=== PATIENT | female | born 1955 | race Caucasian/White ===

== ENCOUNTER → 2024-07-15 11:44 | Outpatient (CLI) | payer MEDICARE, SELFPAY ==
--- NOTE | 2024-07-15 11:46 | DI.RAD.S_ITS ---
PROCEDURE: FL HIP INJECTION MR/CT RT INDICATIONS: RIGHT HIP PAIN TECHNIQUE: The indications, alternatives, benefits, risks, and complications of the procedure were explained to the patient. Written informed consent was obtained and placed in the chart. The hip was examined fluoroscopically with the legs fixed in slight internal rotation, and a site for needle placement chosen for entry into the hip joint from an anterior approach. Care was taken to locate the common femoral artery and vein beforehand. The skin was prepped and draped in a sterile fashion, and 1% Lidocaine infiltrated from skin down to joint capsule. A spinal needle was inserted into the joint, and a small amount of iodinated contrast media injected to confirm intra-articular placement of the needle tip. This was followed by approximately 10 mL dilute solution of a gadolinium containing MR contrast agent. The needle was removed and a dressing was applied. The patient was given postprocedural instructions and sent to the MR suite for imaging. COMPARISON: None. FINDINGS: A single fluoroscopic spot image demonstrates intra-articular location of injected iodinated contrast. IMPRESSION: Successful fluoroscopically guided administration of dilute Gadolinium solution into the hip joint for MR arthrogram. Dictated by: Dax Torres M.D. on 07/15/2024 at 15:27 Approved by: Dax Torres M.D. on 07/15/2024 at 15:27
--- NOTE | 2024-07-15 11:46 | DI.MRI.S_ITS ---
PROCEDURE: MR HIP RT W CON INDICATIONS: RIGHT HIP PAIN TECHNIQUE: After the administration of 10 mL of dilute intra-articular Gadolinium contrast, coronal STIR of the bony pelvis; coronal and oblique axial T1 spin echo with fat saturation, axial T2 fast spin echo with fat saturation, sagittal T1 spin echo with and without fat saturation of the involved hip. COMPARISON: None. FINDINGS: Image quality: Excellent. Bones and joints: Scoliosis of the lower lumbar spine, incompletely evaluated. No marrow edema of the visualized lower lumbar spine. The visualized sacrum is intact. The right and the left sacroiliac joints are unremarkable. Moderate degenerative changes of the right hip with marrow edema in the femoral head, and the acetabulum. Moderate joint space narrowing of the right hip. No acute fracture or dislocation of either hip. No avascular necrosis of either femoral head. Tendons and ligaments: The right iliopsoas, and adductor tendon are unremarkable. The right hamstring tendon is unremarkable. The right gluteal minimus, and the right gluteal medius tendon are unremarkable. Small marrow edema at the right greater tuberosity, reactive. Labrum and cartilage: Superior labral tear, extending anteriorly to the anterior superior labrum.. No paralabral cyst. Soft tissues: Unremarkable IMPRESSION: 1. Moderate degenerative changes of right hip with mild subchondral marrow edema. 2. Labral tear. No paralabral cyst. 3. Mild reactive marrow edema at the right greater tuberosity. Dictated by: Shey Madrid M.D. on 07/16/2024 at 9:37 Approved by: Shey Madrid M.D. on 07/16/2024 at 9:44
[2024-07-15] MEDS: LIDOCAINE 1% 20 ML INJ (14:08)
[2024-07-15] MEDS: SODIUM CHLORIDE 0.9 % 20 ML VIAL IV (14:09)
== END ==
PROVIDERS: Referring Provider Student in an Organized Health Care Education/Training Program; Visit Provider Student in an Organized Health Care Education/Training Program
DX: S73.191A Other sprain of right hip, initial encounter (principal); M25.551 Pain in right hip
CPT/HCPCS: 27093; 73525; 73722; A9579; Q9967

== ENCOUNTER → 2024-11-29 10:14 | Outpatient (CLI) | payer MEDICARE, SELFPAY ==
--- NOTE | 2024-11-29 17:15 | DI.NM.S_ITS ---
DATE OF SERVICE: 11/29/2024 NUCLEAR CARDIOLOGY MYOCARDIAL PERFUSION STUDY PROCEDURE: Exercise treadmill stress and rest myocardial perfusion imaging with gating to assess ejection fraction and regional wall motion. ORDERING PROVIDER: KRYSTIAN Mitchell INDICATIONS: The patient is a 69-year-old female with atypical epigastric pain with anticipation for possible hip replacement surgery. CARDIAC STRESS: The patient was able to exercise for a total of 4 minutes 42 seconds on a standard Broderick protocol suggesting mild- moderately reduced exercise capacity with an AIDEE of +18%. She had a normal heart rate response to exercise although developed a brief SVT in early recovery with heart rates up to 176 bpm, which resolved promptly with Valsalva maneuver. She had a mild hypertensive blood pressure response to exercise with a resting blood pressure of 160/90 increasing to a maximum of 210/110. She had moderate exertional dyspnea but no chest discomfort or other anginal symptoms. Her resting ECG shows sinus rhythm with probable LVH and associated mild inferolateral ST segment abnormalities. With stress, the ST segment abnormalities become somewhat accentuated but remain nonspecific because of the baseline abnormality. With her SVT in early recovery, she has QRS widening in a left bundle-branch block configuration with associated ST-segment abnormalities. With resolution of her SVT and LBBB, her ST segments normalized. At 3 minutes 30 seconds of exercise at a heart rate of 146 bpm, 25.9 mCi of technetium-99m Myoview was injected and she was imaged 10 minutes later using a gated SPECT acquisition protocol. Earlier in the day while at rest, she had been injected with 12.8 mCi of technetium-99m Myoview and was imaged 15 minutes later, again using a gated SPECT acquisition protocol. FINDINGS: 1. Raw data: There is fairly good myocardial tracer uptake with mild breast shadows noted. The lung/heart ratio is normal at 0.27 with a normal TID ratio of 1.02. 2. Quantitated gated SPECT: Post-stress ejection fraction is 73% without any focal wall motion abnormality. Resting ejection fraction is 71% with a normal resting end-diastolic volume of 103 mL. 3. Myocardial perfusion imaging: Post-stress supine images show a normal myocardial perfusion pattern, supported by normal, homogeneous perfusion imaging in the prone position. The resting images show a similar perfusion pattern without any areas of improvement. IMPRESSION: 1. Normal exercise treadmill myocardial perfusion study for ischemia. 2. No myocardial perfusion defects to suggest myocardial ischemia or previous myocardial infarction. 3. Normal left ventricular size and systolic function without focal wall motion abnormality. 4. Mild to moderately reduced exercise capacity without angina. Baseline ECG abnormalities become accentuated with stress and likely reflect LVH with repolarization abnormality. She developed SVT at 176 bpm with left bundle-branch block configuration in early recovery that spontaneously resolved with Valsalva maneuver and was asymptomatic and no other appreciable arrhythmias. She had a mild hypertensive blood pressure response to exercise. Kriss Molina - RS/krista/AL doc#: [id number]/job#: [id number] dd: 11/29/2024 16:41:00 dt: 11/29/2024 16:59:00 DICTATING MD/COPIES TO: Jaden Oliveira MD; KRYSTIAN Mitchell COPIES MNE: ERICA; ; Ktahya Villalpando PAC
== END ==
LOC: NUCM 10:15
PROVIDERS: PCP Family Medicine; Referring Provider Physician Assistant; Visit Provider Physician Assistant
DX: R07.9 Chest pain, unspecified (principal)
CPT/HCPCS: 78452; 93017; A9502

== ENCOUNTER → 2025-02-20 15:08 | Outpatient (CLI) | payer MEDICARE, MEDICAID, SELFPAY ==
[2025-02-20 15:46] LABS: Add Manual Diff / Slide Review NO; Basophils Absolute Auto 0 /uL (0-100); Basophils Percent Auto 0.6 % (0-2); Eosinophils Absolute Auto 200 /uL (0-450); Eosinophils Percent Auto 2.1 % (2-4); Hematocrit 33.9 % (36-46); Hemoglobin 11.6 g/dL (12.0-16.0); Lymphocytes Absolute Auto 1700 /uL (1100-4500); Lymphocytes Percent Auto 21.2 % (25-40); Mean Corpuscular HGB Conc 34.1 % (30-36); Mean Corpuscular Hemoglobin 31.5 PG (26-34); Mean Corpuscular Volume 92.5 fL (80-100); Monocytes Absolute Auto 500 /uL (0-900); Monocytes Percent Auto 6.1 % (3-14); Neutrophils Absolute Auto 5500 /uL (1500-7000); Platelet Count 297 X10^3/uL (150-400); Red Blood Cell Count 3.67 X10^6/uL (4.0-5.2); Red Cell Distribution Width 13.1 % (11.6-14.8); White Blood Cell Count 7.9 X10^3/uL (4.5-11.0)
== END ==
PROVIDERS: PCP Family Medicine; Referring Provider Family Medicine; Visit Provider Family Medicine
DX: D50.9 Iron deficiency anemia, unspecified (principal); Z13.0 Encounter for screening for diseases of the blood and blood-forming organs and certain disorders involving the immune mechanism
CPT/HCPCS: 36415; 85025

== ENCOUNTER → 2025-02-28 13:49 | Outpatient (CLI) | payer MEDICARE, MEDICAID, SELFPAY ==
--- NOTE | 2025-02-28 13:50 | DI.RAD.S_ITS ---
PROCEDURE: XR DEXA AXIAL SKELETON INDICATIONS: postmenopausal COMPARISON: None. FINDINGS: Lumbar Spine: Bone mineral density 0.981 g/cm2, T score -0.6. Left Femoral Neck: Bone mineral density 0.698 g/cm2, T score -1.4. Left Hip: Bone mineral density 0.847 g/cm2, T score -0.8. Fracture Risk Calculation (when applicable): 10-year fracture risk of a major osteoporotic fracture 15 percent and of a hip fracture 1.8 percent. (T score greater or equal to -1.0 to: NORMAL) (T score from -1.1 to -2.4: OSTEOPENIA) (T score less than or equal to -2.5: OSTEOPOROSIS) IMPRESSION: Osteopenia--- recommend repeat DEXA in 2-3 years for reassessment. Follow-up guidelines as follows: Osteoporosis: Consider a repeat DEXA and Vertebral Fracture Assessment (VFA) exam in 2 years or sooner if medically necessary, to reassess this patient's status. Osteopenia: Consider a repeat DEXA in 2-3 years to reassess this patient's status, or if there is a new clinical indication. Normal: Consider a repeat DEXA in 5 years or sooner, or if there is a new clinical indication. All treatment decisions require clinical judgment and consideration of individual patient factors, including patient preferences, comorbidities, previous drug use, risk factors not captured in the FRAX model (e.g., frailty, falls, vitamin D deficiency, increased bone turnover, interval significant decline in bone density ) and possible under- or over-estimation of fracture risk by FRAX. In addition, the NOF Guide recommends that FDA-approved medical therapies be considered in postmenopausal women and men age >= 50 years with a: * Hip or vertebral (clinical or morphometric) fracture * T-score of <=-2.5 at the spine or hip * Ten-year fracture probability by FRAX of >= 3% for hip fracture or >=20% for major osteoporotic fracture. Dictated by: Yousif Joseph M.D. on 02/28/2025 at 19:07 Approved by: Yousif Joseph M.D. on 02/28/2025 at 19:08
== END ==
LOC: RAD 13:50
PROVIDERS: PCP Family Medicine; Referring Provider Family Medicine; Visit Provider Family Medicine
DX: M85.852 Other specified disorders of bone density and structure, left thigh (principal); Z78.0 Asymptomatic menopausal state
CPT/HCPCS: 77080

== ENCOUNTER 2025-04-29 14:00 | Emergency (ER) | payer MEDICARE, MEDICAID, SELFPAY ==
[2025-04-29] VITALS (14 sets, daily range): BP systolic 161–224; BP diastolic 74–99; PULSE 66–76; RESP 16–30; TEMP 36.7–37.2; O2SAT 93–96; BMI 30.2
--- NOTE | 2025-04-29 16:51 | ED.ABDPAIN ---
HPI - Abdominal Pain <Pastor Harrison MD - Last Filed: 04/29/25 16:52> General Chief Complaint: Urogenital-Female Stated Complaint: Lower left back pain . Time Seen by Provider: 04/29/25 16:51 Source: patient Mode of arrival: Ambulatory History of Present Illness HPI narrative: This is a 61-year-old female who is referred to the emergency department by her primary care provider Dr. Jaden Wilkerson. Patient reportedly had left flank pain for 5 days. There is concern for ureteral stone. Dr. Wilkerson reported the patient appeared uncomfortable. Related Data Allergies Allergy/AdvReac Type Severity Reaction Status Date / Time clarithromycin (From Biaxin) Allergy Rash Verified 04/29/25 14:28 morphine AdvReac Mild Nausea Verified 04/29/25 14:37 ibuprofen AdvReac Vomiting Verified 04/29/25 14:37 naproxen (From Aleve) AdvReac Vomiting Verified 04/29/25 14:37 oxycodone AdvReac Agitated Verified 04/29/25 14:37 Patient History <Pastor Harrison MD - Last Filed: 04/29/25 16:52> Social History Smoking Status: Never smoker Smoking Status: Never smoker Exam <Pastor Harrison MD - Last Filed: 04/29/25 16:52> Initial Vital Signs Initial Vital Signs: Vital Signs Temperature 98.9 F 04/29/25 14:24 Pulse Rate 72 04/29/25 14:24 Respiratory Rate 18 04/29/25 14:24 Blood Pressure 199/99 H 04/29/25 14:24 Pulse Oximetry 96 04/29/25 14:24 Oxygen Delivery Method Room Air 04/29/25 14:24 <Elias Mckeon MD - Last Filed: 04/29/25 18:52> Narrative Exam Narrative: GENERAL: Well-developed patient, in mild distress. HEAD: Atraumatic. Normocephalic. EYES: Pupils equal round and reactive. Extraocular motions intact. No scleral icterus. No injection or drainage. ENT: Nose without bleeding, purulent drainage. Throat without erythema, tonsillar hypertrophy or exudate. Airway patent. NECK: Trachea midline. Non tender CARDIOVASCULAR: Regular rate and rhythm without murmurs, gallops, or rubs. RESPIRATORY: Clear to auscultation. Breath sounds equal bilaterally. No wheezes, rales, or rhonchi. GASTROINTESTINAL: Abdomen soft, non-tender, nondistended. EXTREMITIES: No edema or joint tenderness. BACK: Nontender without deformity or crepitance. No flank tenderness. NEURO: AOx3. Motor functions grossly nonfocal. SKIN: No rash or erythema of visible areas Initial Vital Signs Initial Vital Signs: Vital Signs Temperature 98.9 F 04/29/25 14:24 Pulse Rate 72 04/29/25 14:24 Respiratory Rate 18 04/29/25 14:24 Blood Pressure 199/99 H 04/29/25 14:24 Pulse Oximetry 96 04/29/25 14:24 Oxygen Delivery Method Room Air 04/29/25 14:24 Course <Pastor Harrison MD - Last Filed: 04/29/25 16:52> Orders Ordered: ED Orders 04/29/25 14:42 Urine Culture Stat Urine Microscopic Stat 04/29/25 16:54 CBC Auto Diff [Complete Blood Count AUTO DIFF] Stat CMP [Comprehensive Metabolic Panel] Stat 04/29/25 16:56 Lipase Stat Ondansetron HCl (Ondansetron 4 Mg/2 Ml Inj) 4 mg IV NOW PRN PRN Reason: Nausea And Vomiting Ondansetron HCl (Ondansetron 4 Mg Odt) 4 mg PO NOW PRN PRN Reason: Nausea And Vomiting Discontinued Medications Acetaminophen (Ofirmev) 1,000 mg in 100 mls @ 400 mls/hr IV NOW ONE Stop: 04/29/25 17:08 Vital Signs Vital signs: Vital Signs - 8 hr 04/29/25 14:24 Temperature 98.9 F Pulse Rate 72 Respiratory Rate 18 Blood Pressure 199/99 H Pulse Oximetry 96 Oxygen Delivery Method Room Air <Elias Mckeon MD - Last Filed: 04/29/25 18:52> Orders Ordered: ED Orders 04/29/25 14:42 Urine Culture Stat Urine Microscopic Stat 04/29/25 16:54 CBC Auto Diff [Complete Blood Count AUTO DIFF] Stat CMP [Comprehensive Metabolic Panel] Stat 04/29/25 16:56 Lipase Stat Ondansetron HCl (Ondansetron 4 Mg/2 Ml Inj) 4 mg IV NOW PRN PRN Reason: Nausea And Vomiting Ondansetron HCl (Ondansetron 4 Mg Odt) 4 mg PO NOW PRN PRN Reason: Nausea And Vomiting Discontinued Medications Acetaminophen (Ofirmev) 1,000 mg in 100 mls @ 400 mls/hr IV NOW ONE Stop: 04/29/25 17:08 Vital Signs Vital signs: Vital Signs - 8 hr 04/29/25 14:24 Temperature 98.9 F Pulse Rate 72 Respiratory Rate 18 Blood Pressure 199/99 H Pulse Oximetry 96 Oxygen Delivery Method Room Air MDM - Abdominal Pain <Pastor Harrison MD - Last Filed: 04/29/25 16:52> Lab Data Labs: Lab Results 04/29/25 Range/Units 14:42 Urine RBC None seen (0-5/HPF) Urine WBC None seen (0-5/HPF) Ur Squamous Epith Cells None seen (0-5/HPF) Urine Bacteria None seen (None) Vol Urine Centrifuged 10ml (spun) Point of care testing: Urine Dip Bedside Urine Glucose Negative Bedside Urine Bilirubin - Negative Bedside Urine Ketone - Negative Urine Specific [place] 1.015 Bedside Urine Occult Blood - Negative Bedside Urine pH 6.0 Bedside Urine Protein +/- 15 Bedside Urine Urobilinogen - Negative Bedside Urine Nitrite - Negative Bedside Urine Leukocytes - Negative Esterase <Elias Mckeon MD - Last Filed: 04/29/25 18:52> Lab Data Labs: Lab Results 04/29/25 Range/Units 14:42 Urine RBC None seen (0-5/HPF) Urine WBC None seen (0-5/HPF) Ur Squamous Epith Cells None seen (0-5/HPF) Urine Bacteria None seen (None) Vol Urine Centrifuged 10ml (spun) Point of care testing: Urine Dip Bedside Urine Glucose Negative Bedside Urine Bilirubin - Negative Bedside Urine Ketone - Negative Urine Specific [place] 1.015 Bedside Urine Occult Blood - Negative Bedside Urine pH 6.0 Bedside Urine Protein +/- 15 Bedside Urine Urobilinogen - Negative Bedside Urine Nitrite - Negative Bedside Urine Leukocytes - Negative Esterase Discharge Plan Departure Referrals: Jaden Wilkerson MD [Primary Care Provider, [facility]]
--- NOTE | 2025-04-29 18:53 | ED.GENADULT ---
HPI - General Adult General Chief complaint: Urogenital-Female Stated complaint: Lower left back pain . Time Seen by Provider: 04/29/25 16:51 Source: patient Mode of arrival: Ambulatory History of Present Illness HPI narrative: 69-year-old female complains of 6 days duration left flank pain dull aching, radiating to the left groin, sharp since yesterday, single episode of nonbloody emesis, persisting nausea, 1 loose stool 3 days ago, no black or red stools. No recent antibiotics. No history of kidney stones recalled. No history of known colitis or diverticulitis. No injury trauma or new activities. No painful or frequent urination. Related Data Allergies Allergy/AdvReac Type Severity Reaction Status Date / Time clarithromycin (From Biaxin) Allergy Rash Verified 04/29/25 14:28 morphine AdvReac Mild Nausea Verified 04/29/25 14:37 ibuprofen AdvReac Vomiting Verified 04/29/25 14:37 naproxen (From Aleve) AdvReac Vomiting Verified 04/29/25 14:37 oxycodone AdvReac Agitated Verified 04/29/25 14:37 Patient History Social History Smoking Status: Never smoker Smoking Status: Never smoker Exam Narrative Exam Narrative: GENERAL: Well-developed patient, in mild distress. HEAD: Atraumatic. Normocephalic. EYES: Pupils equal round and reactive. Extraocular motions intact. No scleral icterus. No injection or drainage. ENT: Nose without bleeding, purulent drainage. Throat without erythema, tonsillar hypertrophy or exudate. Airway patent. NECK: Trachea midline. Non tender CARDIOVASCULAR: Regular rate and rhythm without murmurs, gallops, or rubs. RESPIRATORY: Clear to auscultation. Breath sounds equal bilaterally. No wheezes, rales, or rhonchi. GASTROINTESTINAL: Abdomen soft, non-tender, nondistended. EXTREMITIES: No edema or joint tenderness. BACK: Nontender without deformity or crepitance. No flank tenderness. NEURO: AOx3. Motor functions grossly nonfocal. SKIN: No rash or erythema of visible areas Initial Vital Signs Initial Vital Signs: Vital Signs Temperature 98.9 F 04/29/25 14:24 Pulse Rate 72 04/29/25 14:24 Respiratory Rate 18 04/29/25 14:24 Blood Pressure 199/99 H 04/29/25 14:24 Pulse Oximetry 96 04/29/25 14:24 Oxygen Delivery Method Room Air 04/29/25 14:24 Course Orders Ordered: ED Orders 04/29/25 18:50 CBC Auto Diff [Complete Blood Count AUTO DIFF] Stat CMP [Comprehensive Metabolic Panel] Stat Lipase Stat 04/29/25 19:04 CT abdomen pelvis wo con Stat Discontinued Medications Hydromorphone HCl (Hydromorphone Hcl 0.5 Mg/0.5 Ml Syringe) 0.5 mg IV NOW ONE Stop: 04/29/25 19:07 Last Admin: 04/29/25 19:24 Dose: 0.5 mg Documented By: SEKOU Acetaminophen (Ofirmev) 1,000 mg in 100 mls @ 400 mls/hr IV NOW ONE Stop: 04/29/25 17:08 Last Infusion: 04/29/25 19:21 Dose: Infused Documented By: Admin: 04/29/25 18:58 Dose: 400 mls/hr Documented By: OWEN Magnesium Citrate (Magnesium Citrate 300 Ml Solution) 150 ml PO NOW ONE Stop: 04/29/25 21:40 Last Admin: 04/29/25 22:14 Dose: 150 ml Documented By: OWEN Ondansetron HCl (Ondansetron 4 Mg/2 Ml Inj) 4 mg IV NOW PRN PRN Reason: Nausea And Vomiting Ondansetron HCl (Ondansetron 4 Mg Odt) 4 mg PO NOW PRN PRN Reason: Nausea And Vomiting Ondansetron HCl (Ondansetron 4 Mg/2 Ml Inj) 4 mg IV NOW ONE Stop: 04/29/25 19:08 Last Admin: 04/29/25 19:24 Dose: 4 mg Documented By: SEKOU Ondansetron HCl (Ondansetron 4 Mg/2 Ml Inj) 4 mg IV Q2HR PRN PRN Reason: Nausea And Vomiting Ondansetron HCl (Ondansetron 4 Mg/2 Ml Inj) 4 mg IV NOW ONE Stop: 04/29/25 21:40 Last Admin: 04/29/25 22:15 Dose: 4 mg Documented By: OWEN Vital Signs Vital signs: Vital Signs - 8 hr 04/29/25 19:30 04/29/25 19:30 04/29/25 19:41 Temperature Pulse Rate 75 Respiratory Rate 16 Blood Pressure 177/84 H 175/86 H Pulse Oximetry 95 Oxygen Delivery Method 04/29/25 19:41 04/29/25 20:00 04/29/25 20:00 Temperature Pulse Rate 71 66 Respiratory Rate 16 17 Blood Pressure 168/77 H Pulse Oximetry 95 93 Oxygen Delivery Method 04/29/25 20:30 04/29/25 20:30 04/29/25 21:00 Temperature Pulse Rate 69 Respiratory Rate 24 Blood Pressure 161/74 H 180/81 H Pulse Oximetry 93 Oxygen Delivery Method 04/29/25 21:00 04/29/25 21:30 04/29/25 21:30 Temperature Pulse Rate 68 72 Respiratory Rate 19 23 Blood Pressure 192/85 H Pulse Oximetry 93 95 Oxygen Delivery Method 04/29/25 22:00 04/29/25 22:00 04/29/25 22:06 Temperature Pulse Rate 71 76 Respiratory Rate 17 16 Blood Pressure 224/96 H Pulse Oximetry 94 94 Oxygen Delivery Method Room Air 04/29/25 22:07 04/29/25 22:07 04/29/25 22:30 Temperature Pulse Rate 70 71 Respiratory Rate 19 30 H Blood Pressure 204/94 H Pulse Oximetry 94 94 Oxygen Delivery Method 04/29/25 22:32 04/29/25 22:32 04/29/25 22:42 Temperature 98.1 F Pulse Rate 68 Respiratory Rate 29 H Blood Pressure 209/90 H Pulse Oximetry 94 Oxygen Delivery Method Medical Decision Making Lab Data Lab results reviewed: Yes I reviewed the patient's lab results. Lab results narrative: White blood cell count 76006, hemoglobin 13.5, platelets adequate. Glucose normal. Normal renal function, serum CO2, electrolytes. Liver functions and lipase normal. Urine dip negative. 04/29/25 18:50 04/29/25 18:50 Labs: Lab Results 04/29/25 04/29/25 Range/Units 14:42 18:50 WBC 11.4 H (4.5-11.0) X10^3/uL RBC 4.39 (4.0-5.2) X10^6/uL Hgb 13.5 (12.0-16.0) g/dL Hct 40.0 (36-46) % MCV 91.2 (80-100) fL MCH 30.7 (26-34) PG MCHC 33.7 (30-36) % RDW 13.3 (11.6-14.8) % Plt Count 308 (150-400) X10^3/uL Neut % (Auto) 76.7 H (50-75) % Lymph % (Auto) 16.3 L (25-40) % [place] % (Auto) 5.3 (3-14) % Eos % (Auto) 0.5 L (2-4) % Baso % (Auto) 1.2 (0-2) % Neut # (Auto) 8700 H (4718-7885) /uL Lymph # (Auto) 1900 (3491-0074) /uL [place] # (Auto) 600 (0-900) /uL Eos # (Auto) 100 (0-450) /uL Baso # (Auto) 100 (0-100) /uL Sodium 137 (137-145) mmol/L Potassium 4.3 (3.4-5.1) mmol/L Chloride 103 (98-107) mmol/L Carbon Dioxide 23 (22-32) mmol/L BUN 9 (7-17) mg/dL Creatinine 0.54 (0.52-1.04) mg/dL Estimated GFR > 60 (>60) mL/min BUN/Creatinine Ratio 16.7 (6-22) Glucose 124 H (70-99) mg/dL Calcium 9.4 (8.4-10.2) mg/dL Total Bilirubin 0.6 (0.2-1.3) mg/dL AST 31 (14-36) IU/L ALT 32 (<35) IU/L Alkaline Phosphatase 99 (38-126) U/L Total Protein 9.2 H (6.3-8.2) g/dL Albumin 4.8 (3.5-5.0) g/dL Globulin 4.4 H (1.7-4.1) g/dL Albumin/Globulin Ratio 1.1 (1.0-2.8) Lipase 62 (23-300) U/L Urine RBC None seen (0-5/HPF) Urine WBC None seen (0-5/HPF) Ur Squamous Epith Cells None seen (0-5/HPF) Urine Bacteria None seen (None) Vol Urine Centrifuged 10ml (spun) Urine Dip Bedside Urine Glucose Negative Bedside Urine Bilirubin - Negative Bedside Urine Ketone - Negative Urine Specific [place] 1.015 Bedside Urine Occult Blood - Negative Bedside Urine pH 6.0 Bedside Urine Protein +/- 15 Bedside Urine Urobilinogen - Negative Bedside Urine Nitrite - Negative Bedside Urine Leukocytes - Negative Esterase Point of care testing: Urine Dip Bedside Urine Glucose Negative Bedside Urine Bilirubin - Negative Bedside Urine Ketone - Negative Urine Specific [place] 1.015 Bedside Urine Occult Blood - Negative Bedside Urine pH 6.0 Bedside Urine Protein +/- 15 Bedside Urine Urobilinogen - Negative Bedside Urine Nitrite - Negative Bedside Urine Leukocytes - Negative Esterase MDM Narrative Medical decision making narrative: 69-year-old female with 6 days duration left flank pain with radiation to the ipsilateral groin, no history of kidney stones. Afebrile, sirs screen negative. No tenderness on examination. DDx consider ureteral stone, also consider UTI/pyelo, colitis, diverticulitis, muscular, early zoster, other. Labs pending. CT abdomen and pelvis noncontrast study. History of NSAID allergy. IV Tylenol had been ordered by off shift provider. Patient willing to try opiate, has nausea with morphine. IV Zofran prior to IV hydromorphone. Lab data: White blood cell count 60766, hemoglobin 13.5, platelets adequate. Glucose normal. Normal renal function, serum CO2, electrolytes. Liver functions and lipase normal. Urine dip negative. CT abdomen shows large stool burden, diverticulosis without diverticulitis. No bowel obstruction changes. See radiology report. Patient declines opiate ultimately. Stated to nursing that she would take meloxicam for her pain. Magnesium citrate 150 cc bottle to take orally for constipation changes on imaging. Discharged home. Return precautions discussed. Discharge Plan Departure Patient Disposition: Home Clinical Impression: Constipation, Abdominal pain Activity Restrictions/Additional Instructions: Left-sided flank pain unclear cause. CT scan abdomen and pelvis showed constipation lots of stool changes, but no bowel obstruction, no acute changes. You did not want opiate pain medication for discharge, and this can also cause constipation or contribute to constipation in the future. You stated that you were going to be trying meloxicam. Try [id number] magnesium citrate, take oral bottle once your at-home your toilet as you might respond quickly. Drink plenty of fluids. Recheck with your regular doctor if not improving in the next couple of days. Return to this/nearest emergency department for any change worsening symptoms or any concerns prior. Consider screening colonoscopy to look for cancer or other causes of discomfort not seen on imaging. If your symptoms persist and are otherwise not explained. Referrals: Jaden Wilkerson MD [Primary Care Provider, [facility]] Stand Alone Forms: Patient Portal/API
[2025-04-29] MEDS: ACETAMINOPHEN IV 1,000 MG/100 ML VIAL 400 MG IV (18:58)
[2025-04-29 19:01] LABS: Add Manual Diff / Slide Review NO; Hematocrit 40.0 % (36-46); Hemoglobin 13.5 g/dL (12.0-16.0); Lymphocytes Absolute Auto 1900 /uL (1100-4500); Mean Corpuscular HGB Conc 33.7 % (30-36); Mean Corpuscular Hemoglobin 30.7 PG (26-34); Mean Corpuscular Volume 91.2 fL (80-100); Platelet Count 308 X10^3/uL (150-400)
--- NOTE | 2025-04-29 19:04 | DI.CT.S_ITS ---
PROCEDURE: CT ABDOMEN PELVIS WO CON INDICATIONS: Left flank pain, LLQ pain TECHNIQUE: Axial sections were acquired from the lung bases to the pubic symphysis. Coronal and sagittal reformats were performed. For radiation dose reduction, the following was used: automated exposure control, adjustment of mA and/or kV according to patient size. COMPARISON: None. FINDINGS: Image quality: Diagnostic. Lower Chest: No significant findings. URINARY: Right Kidney: No stones or hydronephrosis. Simple appearing cyst. Right Ureter: No hydroureter. Left Kidney: No stones or hydronephrosis. Left Ureter: No hydroureter. Bladder: Normal wall thickness. No stones. ABDOMEN: Liver: No contour-deforming solid mass. Decreased attenuation, consistent with hepatic steatosis. Gallbladder: No radiopaque gallstones or wall thickening. Biliary ducts: No biliary dilation. Pancreas: No ductal dilation. Spleen: Size is within normal limits. Adrenal Glands: No adrenal nodules. Stomach and Bowel: Normal colonic caliber, without significant wall thickening. Diverticulosis without evidence of acute diverticulitis. Large stool burden. Normal appendix. Peritoneum: No abnormal intraperitoneal fluid. No free air. Ventral Wall: No hernia. Abdominal Nodes: No enlarged retroperitoneal or mesenteric lymph nodes. Vessels: Aorta and inferior vena cava are normal in size. Atherosclerotic vascular calcifications. PELVIS: Pelvic Organs: Unremarkable. Pelvic Nodes: Unremarkable. Miscellaneous: No inguinal hernias are seen. Bones: Degenerative changes of the spine. Decreased osseous mineralization. Levo scoliotic curvature. IMPRESSION: 1. No obstructing stones or hydronephrosis. No acute findings within the abdomen or pelvis. 2. Large stool burden, correlate for constipation. 3. Diverticulosis without evidence of acute diverticulitis. 4. Hepatic steatosis. Dictated by: Dax Torres M.D. on 04/29/2025 at 20:10 Approved by: Dax Torres M.D. on 04/29/2025 at 20:15
[2025-04-29] MEDS: ONDANSETRON 4 MG/2 ML INJ IV ×2 (19:24→22:15)
[2025-04-29 19:29] LABS: Lipase 62 U/L (23-300)
[2025-04-29 19:30] LABS: Alanine Aminotransferase 32 IU/L (<35); Albumin 4.8 g/dL (3.5-5.0); Albumin Globulin Ratio 1.1 (1.0-2.8); Alkaline Phosphatase 99 U/L (38-126); Blood Urea Nitrogen 9 mg/dL (7-17); Calcium 9.4 mg/dL (8.4-10.2); Carbon Dioxide 23 mmol/L (22-32); Chloride 103 mmol/L (98-107); Estimated Glomerular Filt Rate > 60 mL/min (>60); Globulin 4.4 g/dL (1.7-4.1); Glucose 124 mg/dL (70-99); HEMOLYSIS < 15 (0-50); Potassium 4.3 mmol/L (3.4-5.1); Sodium 137 mmol/L (137-145); Total Protein 9.2 g/dL (6.3-8.2)
[2025-04-29] MEDS: MAGNESIUM CITRATE 300 ML SOLUTION 150 ML PO (22:14)
== END 2025-04-29 22:44 | disposition home or self-care (01) ==
PROVIDERS: Emergency Medicine; Emergency Provider Emergency Medicine; PCP Family Medicine
DX: K59.00 Constipation, unspecified (principal); R10.9 Unspecified abdominal pain
CPT/HCPCS: 36415; 74176; 80053; 81003; 81015; 83690; 85025; 87086; 96365; 96375; 96376; 99284; J0131; J1171; J2405

== ENCOUNTER → 2025-07-29 10:50 | Outpatient (CLI) | payer MEDICARE, MEDICAID, SELFPAY ==
--- NOTE | 2025-07-29 10:51 | DI.US.S_ITS ---
PROCEDURE: US ABDOMEN LIMITED INDICATIONS: RUQ PAIN TECHNIQUE: Real-time focused scanning was performed of the abdomen, with image documentation. COMPARISON: [facility], CT, CT ABDOMEN PELVIS WO CON, 04/29/2025, 19:30. FINDINGS: The liver demonstrates normal size. The liver demonstrates generalized moderately increased echogenicity. This decreases ultrasound sensitivity for detection of hepatic masses. No findings of gallstones or sludge are seen. The gallbladder wall is not thickened, measuring 3 mm or less. No specific pericholecystic fluid is seen. The sonographic Loja sign is negative. There is no biliary dilatation, the common bile duct measures 3-4 mm. No significant pancreatic abnormality is seen on these images. IMPRESSION: The gallbladder demonstrates a normal sonographic appearance. No biliary dilatation is seen. Fatty liver infiltration. Dictated by: Tulio Garcia M.D. on 07/29/2025 at 16:25 Approved by: Tulio Garcia M.D. on 07/29/2025 at 16:26
== END ==
PROVIDERS: PCP Family Medicine; Referring Provider Family Medicine; Visit Provider Family Medicine
DX: K76.0 Fatty (change of) liver, not elsewhere classified (principal); R10.11 Right upper quadrant pain
CPT/HCPCS: 76705